=== PATIENT | male | born 1985 | race Caucasian/White ===

== ENCOUNTER 2018-12-16 23:21 | Emergency (ER) | payer SELFPAY ==
[~2018-12-16] VITALS: Ht 180.3 cm; Wt 79.4 kg
[~2018-12-16 23:21] MED LIST: HYDR-2890 PO
--- OUTSIDE RECORDS SUMMARY | 2018-12-16 23:28 | XMS REPORT | Continuity of Care Document ---
Author Organization Unknown Address Unknown Allergies There is no data. Medications There is no data. Problems Date Dx Coded Attending Type Code Diagnosis Diagnosed By 03/30/2012 EMMA PACHECO APRN 682.9 CELLULITIS AND ABSCESS OF UNSPECIFIED SITES 06/17/2013 EMMA PACHECO APRN V74.5 STD SCREEN Procedures Code [place] [address] ROUTINE VENIPUNCTURE 06/17/2013 30070 SYPHILLIS-[facility] 06/17/2013 47479 HIV ([facility]) 06/17/2013 31284 HEP B SURFACE ANTIGEN ([facility]) 06/17/2013 18595 GC/CHLAM URINE ([facility]) 06/17/2013 Results There is no data. Encounters ACCT No. Visit Date/Time Discharge Status Pt. Type Provider Facility Loc./Unit Complaint [id number] 06/17/2013 09:17:00 06/17/2013 23:59:59 CLS Outpatient EMMA PACHECO APRN
--- OUTSIDE RECORDS SUMMARY | 2018-12-16 23:28 | XMS REPORT ---
Author Author Migration, Doctor Organization [facility] Address Unknown Phone Unavailable Care Team Providers Care Track Service Worker Name Role Phone Migration, Doctor Unavailable Unavailable PROBLEMS Type Condition ICD9-CM Code KIV36-TH Code Onset Dates Condition Status SNOMED Code Problem Screening examination for venereal disease V74.5 Active 988375025 Problem Cellulitis and abscess of unspecified site 682.9 Active [id number] ALLERGIES No Information ENCOUNTERS Encounter Location Date Diagnosis [facility] [id number] [place] [phone] Oct, [facility] [id number] [place] [phone] Oct, [facility] [id number] [place] [phone] Jun, [facility] [id number] [place] [phone] Jun, [facility] [id number] [place] [phone] Jun, [facility] [id number] [place] [phone] Jun, [facility] [id number] [place] [phone] Jun, [facility] [address] [place] [phone] Apr, [facility] [address] [phone] Mar, IMMUNIZATIONS No Known Immunizations SOCIAL HISTORY Never Assessed REASON FOR VISIT EMR-[facility] PLAN OF CARE VITAL SIGNS MEDICATIONS Unknown Medications RESULTS No Results PROCEDURES No Known procedures INSTRUCTIONS MEDICATIONS ADMINISTERED No Known Medications
--- OUTSIDE RECORDS SUMMARY | 2018-12-16 23:28 | XMS REPORT ---
Author Author Migration, Doctor Organization [facility] Address Unknown Phone Unavailable Care Team Providers Care Certified Professional Midwife Name Role Phone Migration, Doctor Unavailable Unavailable PROBLEMS Type Condition ICD9-CM Code ODM91-OC Code Onset Dates Condition Status SNOMED Code Problem Screening examination for venereal disease V74.5 Active 898744757 Problem Cellulitis and abscess of unspecified site 682.9 Active [id number] ALLERGIES No Information ENCOUNTERS Encounter Location Date Diagnosis [facility] [id number] [place] [phone] Oct, [facility] [id number] [place] [phone] Oct, [facility] [id number] [place] [phone] Jun, [facility] [id number] [place] [phone] Jun, [facility] [id number] [place] [phone] Jun, [facility] [id number] [place] [phone] Jun, [facility] [id number] [place] [phone] Jun, [facility] [address] [place] [phone] Apr, [facility] [address] [place], [place] [phone] Mar, IMMUNIZATIONS No Known Immunizations SOCIAL HISTORY Never Assessed REASON FOR VISIT EMR-[facility] PLAN OF CARE VITAL SIGNS MEDICATIONS Medication Instructions Dosage Frequency Start Date End Date Duration Status Bactrim DS 800-160 mg 1 tablet by Oral route 2 times per day for 10 day(s) Mar, Active minocycline 100 mg 1 tablet by Oral route 1 time per day Apr, Active RESULTS No Results PROCEDURES No Known procedures INSTRUCTIONS MEDICATIONS ADMINISTERED No Known Medications
[2018-12-16] MEDS ORDERED: ASPIRIN 81 MG CHEW (CHILDREN'S ASA) ONE (23:30)
[2018-12-16] MEDS ORDERED: ASPIRIN 81 MG CHEW (CHILDREN'S ASA) PO ONE (23:45)
[2018-12-16 23:50] LABS: BASOPHILS % (AUTO) 0 % (0-10); EOSINOPHILS # (AUTO) 0.4 10^3/uL (0.0-0.3); EOSINOPHILS % (AUTO) 3 % (0-10); HEMATOCRIT 49 % (40-54); HEMOGLOBIN 17.7 G/DL (13.3-17.7); LYMPHOCYTES # (AUTO) 4.2 X 10^3 (1.0-4.0); LYMPHOCYTES % (AUTO) 39 % (12-44); MEAN CORPUSCULAR HEMOGLOBIN 32 PG (25-34); MEAN CORPUSCULAR HGB CONC 36 G/DL (32-36); MEAN CORPUSCULAR VOLUME 87 FL (80-99); MEAN PLATELET VOLUME 9.8 FL (7.4-10.4); MONOCYTES # (AUTO) 0.8 X 10^3 (0.0-1.0); MONOCYTES % (AUTO) 8 % (0-12); NEUTROPHILS # (AUTO) 5.4 X 10^3 (1.8-7.8); NEUTROPHILS % (AUTO) 50 % (42-75); PLATELET COUNT 211 10^3/uL (130-400); RED CELL DISTRIBUTION WIDTH 13.1 % (10.0-14.5); WHITE BLOOD COUNT 10.7 10^3/uL (4.3-11.0)
[2018-12-16 23:53] LABS: INR 0.9 (0.8-1.4); PROTHROMBIN TIME PATIENT 12.7 SEC (12.2-14.7)
[2018-12-17] MEDS ORDERED: hydrALAZINE (APESOLINE) 20 MG/ML VIAL IV ONE
[2018-12-17] MEDS ORDERED: KETOROLAC 30 MG/ML VIAL IVP ONE
[2018-12-17 00:02] LABS: ALANINE AMINOTRANSFERASE 102 U/L (0-55); ALBUMIN 4.4 GM/DL (3.2-4.5); ALKALINE PHOSPHATASE 106 U/L (40-136); AMYLASE 51 U/L (25-125); BILIRUBIN,TOTAL 0.3 MG/DL (0.1-1.0); BUN/CREATININE RATIO 14; CALCIUM 9.6 MG/DL (8.5-10.1); CARBON DIOXIDE 21 MMOL/L (21-32); CHLORIDE 107 MMOL/L (98-107); CREATINE KINASE 168 U/L (30-200); CREATININE SERUM 0.87 MG/DL (0.60-1.30); GFR ESTIMATED > 60; GLUCOSE 122 MG/DL (70-105); LIPASE 29 U/L (8-78); MAGNESIUM 2.2 MG/DL (1.8-2.4); POTASSIUM 3.8 MMOL/L (3.6-5.0); SODIUM 140 MMOL/L (135-145); TOTAL PROTEIN 7.8 GM/DL (6.4-8.2)
[2018-12-17 00:10] LABS: CREATINE KINASE MB 2.5 NG/ML (<6.6)
--- NOTE | 2018-12-17 00:21 | ED Chest Pain ---
General Chief Complaint: Chest Pain Stated Complaint: CHEST PAINS Nursing Triage Note: Pt amb to room #9 w/o difficulty. a&ox4. c/o lower rt sided chest discomfort radiating to rt side of back. Reports discomfort began @ approx 1500 on this day and has been constant since. Denies cardiac history. Nursing Sepsis Screen: No Definite Risk Source: patient History of Present Illness Date Seen by Provider: Dec 16, 2018 Time Seen by Provider: 23:35 Initial Comments PT ARRIVES VIA POV C/O MID CHEST PAIN SINCE 1500 TODAY PAIN BEGAN WHILE MOWING GRASS WITH PUSH MOWER PAIN WAXES AND WANES BUT DOES NOT GO AWAY--RATES PAIN 8/10 AT WORST, RATES 4/10 NOW PAIN GOES AWAY IF HE STRETCHES HIS ARMS OVER HIS HEAD OR OUT TO THE SIDES. NO SHORTNESS OF BREATH NO PALPITATIONS NO PAIN WITH BREATHING NO NAUSEA/VOMITING NO SWEATS NO COUGH/COLD OR FEVER OR RECENT ILLNESS NO DIZZINESS TOOK IBUPROFEN 600 MG WITHOUT RELIEF HAS HAD THE SAME THING OFF AND ON MULTIPLE TIMES, BUT NEVER SOUGHT CARE. STATES NORMALLY IT GOES AWAY AFTER AN HOUR OR SO, BUT DID NOT GO AWAY TODAY STATES WHEN HE WAS IN [place] IN 2014, TOLD HIM HE HAD A MURMUR AND "NEEDED TO SEE A SPECIALIST WHEN HE GOT OUT OF HALF[place]WAY IN 2014" BUT PT NEVER DID FOLLOW UP WITH ANYONE PCP: [facility] Allergies and Home Medications Allergies Coded Allergies: No Known Drug Allergies (Unverified , 11/24/11) Home Medications Hydrocodone Bit/Acetaminophen 1 Each Tablet, 1 EACH PO NEEDED Prescribed by: RAJ GONZALEZ on 11/24/111944 Patient Home Medication List Home Medication List Reviewed: Yes Review of Systems Review of Systems Constitutional: no symptoms reported Respiratory: No Symptoms Reported Cardiovascular: See HPI, Chest Pain Gastrointestinal: No Symptoms Reported Genitourinary: No Symptoms Reported Musculoskeletal: no symptoms reported Skin: no symptoms reported Psychiatric/Neurological: No Symptoms Reported Endocrine: No Symptoms Reported Hematologic/Lymphatic: No Symptoms Reported Past Agrqsab-Qsisrf-Bzftpz Hx Patient Social History Alcohol Use: Occasionally Uses Recreational Drug Use: Yes (THC) Drug of Choice: THC Smoking Status: Current Everyday Smoker (2 PPD) Type Used: Cigarettes (2 PPD) 2nd Hand Smoke Exposure: Yes Recent Foreign Travel: No Contact w/Someone Who Travel: No Recent Infectious Disease Expo: No Recent Hopitalizations: No Seasonal Allergies Seasonal Allergies: No Past Medical History Surgeries: Yes (BROKE BOTH LEGS SMALL CHILD AND WAS IN A BODY CAST, BUT DOES NOT KNOW IF HE HAD SURGERY OR NOT, BUT DOES NOT HAVE ANY SCARS. ) Respiratory: No Cardiac: No Neurological: No Genitourinary: No Gastrointestinal: No Musculoskeletal: Yes (BILATERAL LEG FRACTURES SMALL CHILD--ON A BODY CAST. DOES NOT KNOW IF HE HAD SURGERY OR NOT, BUT DOES NOT HAVE ANY SURGICAL SCARS) Fractures Endocrine: No HEENT: No Cancer: No Psychosocial: No Integumentary: No Blood Disorders: No Physical Exam Vital Signs Vital Signs - First Documented Capillary Refill : Less Than 3 Seconds Height, Weight, BMI Height: 5'11.00" Weight: 175lbs. oz. 79.330293hh; BMI Method:Stated General Appearance: No Apparent Distress, WD/WN, Other (FLAT AFFECT; REEKS OF CIGARETTES AND ODOR OF ETOH) Neck: Normal Inspection Respiratory: Chest Non Tender, Normal Breath Sounds, No Accessory Muscle Use, No Respiratory Distress, Other (CERTAIN POSITIONS REPRODUCE OR EASE PAIN ) Cardiovascular: Regular Rate, Rhythm, No Edema, No JVD, No Murmur, Normal Peripheral Pulses Gastrointestinal: Non Tender, Soft Extremity: Normal Capillary Refill, Normal Inspection, Normal Range of Motion, Non Tender, No Calf Tenderness, No Pedal Edema Neurologic/Psychiatric: Alert, Oriented x3, No Motor/Sensory Deficits, seater grinder II- XII Norm as Tested Skin: Normal Color, Warm/Dry Progress/Results/Core Measures Results/Orders Lab Results Laboratory Tests Test 12/16/18 01:00 12/16/18 23:33 Range/Units Urine Opiates Screen NEGATIVE NEGATIVE Urine Oxycodone Screen NEGATIVE NEGATIVE Urine Methadone Screen NEGATIVE NEGATIVE Urine Propoxyphene Screen NEGATIVE NEGATIVE Urine Barbiturates Screen NEGATIVE NEGATIVE Ur Tricyclic Antidepressants Screen NEGATIVE NEGATIVE Urine Phencyclidine Screen NEGATIVE NEGATIVE Urine Amphetamines Screen NEGATIVE NEGATIVE Urine Methamphetamines Screen NEGATIVE NEGATIVE Urine Benzodiazepines Screen NEGATIVE NEGATIVE Urine Cocaine Screen NEGATIVE NEGATIVE Urine Cannabinoids Screen NEGATIVE NEGATIVE White Blood Count 10.7 4.3-11.0 10^3/uL Red Blood Count 5.60 4.35-5.85 10^6/uL Hemoglobin 17.7 13.3-17.7 G/DL Hematocrit 49 40-54 % Mean Corpuscular Volume 87 80-99 FL Mean Corpuscular Hemoglobin 32 25-34 PG Mean Corpuscular Hemoglobin Concent 36 32-36 G/DL Red Cell Distribution Width 13.1 10.0-14.5 % Platelet Count 211 130-400 10^3/uL Mean Platelet Volume 9.8 7.4-10.4 FL Neutrophils (%) (Auto) 50 42-75 % Lymphocytes (%) (Auto) 39 12-44 % Monocytes (%) (Auto) 8 0-12 % Eosinophils (%) (Auto) 3 0-10 % Basophils (%) (Auto) 0 0-10 % Neutrophils # (Auto) 5.4 1.8-7.8 X 10^3 Lymphocytes # (Auto) 4.2 H 1.0-4.0 X 10^3 Monocytes # (Auto) 0.8 0.0-1.0 X 10^3 Eosinophils # (Auto) 0.4 H 0.0-0.3 10^3/uL Basophils # (Auto) 0.0 0.0-0.1 10^3/uL Prothrombin Time 12.7 12.2-14.7 SEC INR Comment 0.9 0.8-1.4 Activated Partial Thromboplast Time 27 24-35 SEC Sodium Level 140 135-145 MMOL/L Potassium Level 3.8 3.6-5.0 MMOL/L Chloride Level 107 98-107 MMOL/L Carbon Dioxide Level 21 21-32 MMOL/L Anion Gap 12 5-14 MMOL/L Blood Urea Nitrogen 12 7-18 MG/DL Creatinine 0.87 0.60-1.30 MG/DL Estimat Glomerular Filtration Rate > 60 BUN/Creatinine Ratio 14 Glucose Level 122 H 70-105 MG/DL Calcium Level 9.6 8.5-10.1 MG/DL Corrected Calcium 9.3 8.5-10.1 MG/DL Magnesium Level 2.2 1.8-2.4 MG/DL Total Bilirubin 0.3 0.1-1.0 MG/DL Aspartate Amino Transf (AST/SGOT) 41 H 5-34 U/L Alanine Aminotransferase (ALT/SGPT) 102 H 0-55 U/L Alkaline Phosphatase 106 40-136 U/L Total Creatine Kinase 168 30-200 U/L Creatine Kinase MB 2.5 <6.6 NG/ML Myoglobin 49.8 10.0-92.0 NG/ML Troponin I < 0.028 <0.028 NG/ML B-Type Natriuretic Peptide < 10.0 <100.0 PG/ML Total Protein 7.8 6.4-8.2 GM/DL Albumin 4.4 3.2-4.5 GM/DL Amylase Level 51 25-125 U/L Lipase 29 8-78 U/L Serum Alcohol < 10 <10 MG/DL My Orders Orders - GLEN URBINAA Scooter DO Aspirin Chewable Tablet (Baby Aspirin Ch (12/16/18 23:30) Cbc With Automated Diff (12/16/18 23:36) Magnesium (12/16/18 23:36) Chest 1 View, Ap/Pa Only (12/16/18 23:36) Ekg Tracing (12/16/18:36) Cardiac Profile 1 (12/16/18:36) Comprehensive Metabolic Panel (12/16/18:36) Myoglobin Serum (12/16/18 23:36) Protime With Inr (12/16/18 23:36) Partial Thromboplastin Time (12/16/18:36) Monitor-Rhythm Ecg Trace Only (12/16/18 23:36) Ed Iv/Invasive Line Start (12/16/18 23:36) Creatine Kinase (12/16/18 23:36) Creatine Kinase Mb (12/16/18 23:36) Lipase (12/16/18 23:36) Amylase (12/16/18 23:36) BNP (12/16/18 23:36) Aspirin Chewable Tablet (Baby Aspirin Ch (12/16/18 23:45) Alcohol (12/16/18 23:36) Drug Screen Stat (Urine) (12/16/18 23:36) Ketorolac Injection (Toradol Injection) (12/17/18 00:00) Hydralazine Injection (Apresoline Inject (12/17/18 00:00) Pantoprazole Tablet (Protonix Tablet) (12/17/18 01:30) Medications Given in ED Current Medications Medications Dose Ordered Sig/Caleb Route Start Time Stop Time Status Last Admin Dose Admin Aspirin 324 mg ONCE ONCE PO 12/16/18 23:45 12/16/18 23:46 DC 12/16/18 23:38 324 MG Hydralazine HCl 10 mg ONCE ONCE IV 12/17/18 00:00 12/17/18 00:01 DC 12/17/18 00:03 10 MG Ketorolac Tromethamine 30 mg ONCE ONCE IVP 12/17/18 00:00 12/17/18 00:01 DC 12/17/18 00:03 30 MG Vital Signs/I&O 12/16/18 12/16/18 12/17/18 23:29 23:29 01:37 Temp 98.1 98.1 Pulse 81 71 Resp 19 17 B/P (MAP) 179/117 (137) 157/110 (126) Pulse Ox 98 98 O2 Delivery Room Air Room Air Room Air Blood Pressure Mean: 137 Progress Progress Note : Progress Note BP DOWN AND PAIN RESOLVED AT DISMISSAL Initial ECG Impression Date: Dec 16, 2018 Initial ECG Impression Time: 23:36 Initial ECG Rate: 79 Initial ECG Impression: Nonspecific Changes Initial ECG Comparisson: No Previous ECG Available Diagnostic Imaging Comments CXR--NO ACUTE PROCESS, PENDING RADIOLOGIST REVIEW Reviewed: Reviewed by Me Departure Impression Primary Impression: Chest pain Additional Impressions: HTN (hypertension) Smoker Disposition: HOME, SELF-CARE Condition: Improved Departure-Patient Inst. Referrals: NO,LOCAL PHYSICIAN (PCP/Family) Primary Care Physician Patient Instructions: Chest Pain (DC), Controlling Your Blood Pressure Through Lifestyle, High Blood Pressure (DC), DASH Diet Add. Discharge Instructions: HOME, REST TYLENOL NEEDED FOR PAIN FOLLOW UP WITH YOUR DR NEXT WEEK FOR FURTHER CARE RETURN TO ER IF WORSE All discharge instructions reviewed with patient and/or family. Voiced understanding. HEBER URBINA DO Dec 17, 2018 00:21
[2018-12-17 01:28] LABS: AMPHETAMINE SCREEN, URINE NEGATIVE (NEGATIVE); BARBITURATE SCREEN URINE NEGATIVE (NEGATIVE); BENZODIAZEPINES SCREEN URINE NEGATIVE (NEGATIVE); CANNABINOID SCREEN, URINE NEGATIVE (NEGATIVE); COCAINE SCREEN URINE NEGATIVE (NEGATIVE); METHADONE STAT NEGATIVE (NEGATIVE); METHAMPHETAMINE SCREEN URINE S NEGATIVE (NEGATIVE); OPIATE SCREEN URINE NEGATIVE (NEGATIVE); OXYCODONE STAT NEGATIVE (NEGATIVE); PROPOXYPHENE STAT NEGATIVE (NEGATIVE); TRICYCLIC ANTIDEPRESSANTS SCRE NEGATIVE (NEGATIVE)
[2018-12-17] MEDS ORDERED: PANTOPRAZOLE 40 MG (PROTONIX) TAB PO ONE (01:30)
[2018-12-17 01:37] VITALS: BP 157/110
--- NOTE | 2018-12-17 07:09 | Diagnostic Imaging Report ---
CLINICAL INDICATION: Patient with chest pain. EXAM: Portable chest x-ray upright view. COMPARISONS: None. FINDINGS: Lungs/pleura: Azygous lobe is seen. Lungs are clear. There is no pneumothorax. There is no pleural effusion. Mediastinum: Unremarkable. Pulmonary vasculature: Unremarkable. Heart: Unremarkable. Bones/extrathoracic soft tissue: Unremarkable. IMPRESSION: There is no radiographic evidence of acute cardiopulmonary process. Dictated by: Dictated on workstation # [id number]
== END 2018-12-17 01:37 | disposition home or self-care (01) ==
LOC: EDUNIT# 23:21 → ER 23:24
DX: R07.89 Other chest pain (principal); I10 Essential (primary) hypertension; F12.10 Cannabis abuse, uncomplicated; F17.210 Nicotine dependence, cigarettes, uncomplicated
CPT/HCPCS: 36415; 71045; 80053; 80306; 80320; 82150; 82550; 82553; 83690; 83735; 83874; 83880; 84484; 85025; 85610; 85730; 93005; 93041; 96374; 96375